=== PATIENT | female | born 1950 | race Caucasian/White ===

== ENCOUNTER → 2017-01-27 | Outpatient (CLI) | payer MEDICARE, OTHER ==
[~2017-01-27] VITALS: Ht 157.5 cm; Wt 66.7 kg
[2017-01-27 12:21] LABS: Basophils # (auto) 0 uL; Basophils % (auto) 0.5 % (0.0-2.0); CONDITION Y; Eosinophils # (auto) 0.2 uL; Hematocrit 44.6 % (36.0-46.0); Lymphocytes # (auto) 1.8 uL; Lymphocytes % (auto) 33.8 % (10.0-50.0); Mean Corpuscular Hemoglobin 31.3 pg (28.0-32.0); Mean Corpuscular Hgb Conc. 33.5 g/dL (32.0-36.0); Mean Corpuscular Volume 93.3 fL (80.0-100.0); Mean Platelet Volume 10.1 fL (7.4-10.4); Monocytes # (auto) 0.3 uL; Monocytes % (auto) 5.4 % (0.0-12.0); Neutrophils % (auto) 57.3 % (37.0-80.0); Platelet Count (auto) 241 10^3/uL (140-450); Red Cell Distribution Width 13.5 % (11.6-16.0); White Blood Cell 5.2 10^3/uL (4.4-10.8)
[2017-01-27 12:31] LABS: Urine Bilirubin Negative (Negative); Urine Blood Negative /uL (Negative); Urine Color Yellow (Yellow); Urine Glucose Normal (Normal); Urine Ketone Negative (Negative); Urine Nitrite Negative (Negative); Urine Urobilinogen Normal (Negative); Urine pH 5.5 (5.0-8.0)
[2017-01-27 13:03] LABS: Albumin 3.6 g/dL (3.4-5.0); Alkaline Phosphatase 57 U/L (45-117); Anion Gap 9 (5-15); Aspartate Aminotransferase 17 U/L (15-37); Bilirubin, Direct < 0.1 mg/dL (0-0.2); Bilirubin, Total 0.5 mg/dL (0.2-1.0); Blood Urea Nitrogen 18 mg/dL (7-18); Calcium 9.6 mg/dL (8.5-10.1); Carbon Dioxide 24 mmol/L (21-32); Chloride 107 mmol/L (98-107); Cholesterol 226 mg/dL (< 200); GFR African American 123 mL/min; GFR Non-African American 102 mL/min; Glucose 93 mg/dL (74-106); HDL Cholesterol 66 mg/dL (40-59); LDL Cholesterol 137 mg/dL (< 100); Sodium 140 mmol/L (136-145); Total Protein 7.2 g/dL (6.4-8.2); Triglycerides 151 mg/dL (< 150)
== END | disposition home or self-care (01) ==
LOC: Rad HDHVI 08:56
PROVIDERS: ATTEND Internal Medicine Cardiovascular Disease
DX: I10 Essential (primary) hypertension (principal); E11.9 Type 2 diabetes mellitus without complications; E03.9 Hypothyroidism, unspecified; E78.00 Pure hypercholesterolemia, unspecified; N39.0 Urinary tract infection, site not specified; K74.1 Hepatic sclerosis; D64.9 Anemia, unspecified; E55.9 Vitamin D deficiency, unspecified
CPT/HCPCS: 36415; 78452; 80048; 80061; 80076; 81003; 82306; 83036; 84439; 84443; 85025; 93017; 93306; 96374; A9500

== ENCOUNTER → 2018-05-26 | Outpatient (CLI) | payer MEDICARE, OTHER | END | disposition home or self-care (01) | LOC: Rad HDHVI 12:33 | PROVIDERS: ATTEND Internal Medicine Cardiovascular Disease | DX: I10 Essential (primary) hypertension (principal); E78.00 Pure hypercholesterolemia, unspecified; R07.89 Other chest pain; R06.02 Shortness of breath; R00.2 Palpitations | CPT/HCPCS: 93880 ==

== ENCOUNTER → 2018-06-23 | Outpatient (CLI) | payer MEDICARE, OTHER ==
[~2018-06-23] VITALS: Ht 157.5 cm; Wt 68.5 kg
== END | disposition home or self-care (01) ==
LOC: Rad HDHVI 09:47
PROVIDERS: ATTEND Internal Medicine Cardiovascular Disease
DX: I10 Essential (primary) hypertension (principal); R07.89 Other chest pain; R00.2 Palpitations
CPT/HCPCS: 78452; 93017; 96374; A9500

== ENCOUNTER → 2018-12-14 | Outpatient (CLI) | payer MEDICARE, OTHER ==
[2018-12-14 12:14] LABS: Basophils # (auto) 0 uL; Basophils % (auto) 0.5 % (0.0-2.0); Eosinophils # (auto) 0.1 uL; Eosinophils % (auto) 1.7 % (0.0-7.0); Hematocrit 43.3 % (36.0-46.0); Hemoglobin 14.6 g/dL (12.2-16.2); Lymphocytes # (auto) 1.2 uL; Lymphocytes % (auto) 30.7 % (10.0-50.0); Mean Corpuscular Hgb Conc. 33.7 g/dL (32.0-36.0); Monocytes # (auto) 0.3 uL; Monocytes % (auto) 8.1 % (0.0-12.0); Neutrophils # (auto) 2.3 uL; Platelet Count (auto) 208 10^3/uL (140-450); Red Blood Cells 4.56 10^6/uL (4.0-5.20); Red Cell Distribution Width 13.6 % (11.8-14.3); White Blood Cell 3.9 10^3/uL (4.4-10.8)
[2018-12-14 12:19] LABS: Urine Blood Negative /uL (Negative); Urine Specific Gravity 1.024 (1.001-1.035)
[2018-12-14 12:20] LABS: Potassium 4.7 mmol/L (3.5-5.1)
[2018-12-14 12:27] LABS: Free T4 (Free Thyroxine) 1.06 ng/dL (0.89-1.76)
[2018-12-14 12:32] LABS: Albumin 3.8 g/dL (3.4-5.0); BUN/Creatinine Ratio 28.8; Bilirubin, Total 0.4 mg/dL (0.2-1.0); Calcium 9.6 mg/dL (8.5-10.1); Total Protein 7.4 g/dL (6.4-8.2)
== END | disposition home or self-care (01) ==
LOC: LAB 08:41
PROVIDERS: ATTEND Internal Medicine Cardiovascular Disease
DX: E03.9 Hypothyroidism, unspecified (principal); E55.9 Vitamin D deficiency, unspecified; D51.9 Vitamin B12 deficiency anemia, unspecified; N39.0 Urinary tract infection, site not specified; Z79.899 Other long term (current) drug therapy
CPT/HCPCS: 36415; 80053; 80061; 81003; 82306; 82607; 83036; 84439; 84443; 85025; 87086

== ENCOUNTER → 2019-10-18 | Outpatient (CLI) | payer MEDICARE, OTHER ==
[~2019-10-18] VITALS: Ht 157.5 cm; Wt 65.8 kg
[2019-10-18 11:55] LABS: Basophils # (auto) 0 10 ^3/uL (0-0.2); Basophils % (auto) 0.6 % (0.0-2.0); Eosinophils # (auto) 0.1 10 ^3/uL (0-0.8); Eosinophils % (auto) 2.7 % (0.0-7.0); Hematocrit 43.8 % (36.0-46.0); Hemoglobin 14.8 g/dL (12.2-16.2); Lymphocytes # (auto) 1.4 10 ^3/uL (0.4-5.4); Lymphocytes % (auto) 34.7 % (10.0-50.0); Mean Corpuscular Hemoglobin 31.7 pg (28.0-32.0); Mean Corpuscular Hgb Conc. 33.8 g/dL (32.0-36.0); Mean Corpuscular Volume 93.9 fL (80.0-100.0); Monocytes # (auto) 0.3 10 ^3/uL (0-1.3); Monocytes % (auto) 7.6 % (0.0-12.0); Neutrophils # (auto) 2.2 10 ^3/uL (1.6-8.6); Neutrophils % (auto) 54.4 % (37.0-80.0); Nucleated Red Blood Cells % 0.1 %; Platelet Count (auto) 224 10^3/uL (140-450); Red Blood Cells 4.66 10^6/uL (4.0-5.20); Red Cell Distribution Width 13.3 % (11.8-14.3); White Blood Cell 4.1 10^3/uL (4.4-10.8)
[2019-10-18 11:57] LABS: Urine Blood Negative /uL (Negative); Urine Specific Gravity 1.013 (1.001-1.035)
[2019-10-18 12:08] LABS: Potassium 4.2 mmol/L (3.5-5.1)
[2019-10-18 12:15] LABS: Free T4 (Free Thyroxine) 1.12 ng/dL (0.89-1.76)
[2019-10-18 12:19] LABS: Albumin 3.5 g/dL (3.4-5.0); BUN/Creatinine Ratio 31.9; Bilirubin, Total 0.2 mg/dL (0.2-1.0); Total Protein 7.8 g/dL (6.4-8.2)
== END | disposition home or self-care (01) ==
LOC: Rad HDHVI 08:29
PROVIDERS: ATTEND Internal Medicine Cardiovascular Disease
DX: N39.0 Urinary tract infection, site not specified (principal); Z00.00 Encounter for general adult medical examination without abnormal findings; E03.9 Hypothyroidism, unspecified; K90.9 Intestinal malabsorption, unspecified; Z79.899 Other long term (current) drug therapy; D51.9 Vitamin B12 deficiency anemia, unspecified
CPT/HCPCS: 36415; 78452; 80053; 80061; 81003; 82306; 82607; 83036; 84439; 84443; 85025; 87086; 93017; 96374; A9500

== ENCOUNTER → 2019-10-25 | Outpatient (CLI) | payer MEDICARE, OTHER | END | disposition home or self-care (01) | LOC: Rad HDHVI 09:56 | PROVIDERS: ATTEND Internal Medicine Cardiovascular Disease | DX: R00.2 Palpitations (principal); I10 Essential (primary) hypertension; R07.89 Other chest pain | CPT/HCPCS: 93306 ==

== ENCOUNTER → 2020-03-23 | Outpatient (CLI) | payer MEDICARE, OTHER ==
[~2020-03-23] MED LIST: IOHEXOL 350 MG/ML 100ML IJ ONE
[2020-03-23 10:03] VITALS: BP 104/63
--- NOTE | 2020-03-23 10:03 | NUR ---
Patient into clinic for scheduled CT appt. AAOx4, ambulatory, breathing even and unlabored.
--- NOTE | 2020-03-23 10:25 | NUR ---
IV insertion IV access obtained, via clean sterile technique by inserting 22 gauge catheter at RFA after 1 attempt(s). IV secured properly. No trauma to site. Patient tolerated procedure well.
--- NOTE | 2020-03-23 11:00 | NUR ---
IV removal IV DC'd with sterile technique, catheter fully intact. Pressure dressing applied to site. Patient tolerated procedure well.
[2020-03-23 11:04] VITALS: BP 134/59
--- NOTE | 2020-03-23 11:04 | NUR ---
Discharge Instructions See e-MAR for any mediations given with this visit. Patient education given on disease process. Patient verbalized understanding. Previous labs reviewed. Patient discharged in stable condition with after care instructions and follow up appointment. Note Patient educated to drink plenty of fluids over the next 24hrs after IV contrast, patient verbalized understanding.
== END | disposition home or self-care (01) ==
LOC: Rad HDHVI 09:55
PROVIDERS: ATTEND Internal Medicine Cardiovascular Disease
DX: I67.82 Cerebral ischemia (principal); K57.30 Diverticulosis of large intestine without perforation or abscess without bleeding; N28.1 Cyst of kidney, acquired; I67.2 Cerebral atherosclerosis; I70.209 Unspecified atherosclerosis of native arteries of extremities, unspecified extremity; R51 Headache; R10.9 Unspecified abdominal pain; Z90.49 Acquired absence of other specified parts of digestive tract
CPT/HCPCS: 70450; 74177; G0463; Q9967

== ENCOUNTER → 2020-07-30 | Outpatient (CLI) | payer MEDICARE, OTHER | END | disposition home or self-care (01) | LOC: Rad HDHVI 10:03 | PROVIDERS: ATTEND Internal Medicine Cardiovascular Disease | DX: R06.02 Shortness of breath (principal) | CPT/HCPCS: 93306 ==

== ENCOUNTER → 2021-02-13 | Outpatient (CLI) | payer MEDICARE, OTHER ==
[~2021-02-13] VITALS: Ht 157.5 cm; Wt 65.8 kg
== END | disposition home or self-care (01) ==
LOC: Rad HDHVI 09:29
PROVIDERS: ATTEND Internal Medicine Cardiovascular Disease
DX: I10 Essential (primary) hypertension (principal); E78.00 Pure hypercholesterolemia, unspecified
CPT/HCPCS: 78452; 93017; 96374; A9500

== ENCOUNTER → 2021-11-06 | Outpatient (CLI) | payer OTHER, MEDICARE | END | disposition home or self-care (01) | LOC: Rad HDHVI 09:45 | PROVIDERS: ATTEND Internal Medicine Cardiovascular Disease | DX: R07.89 Other chest pain (principal); R42 Dizziness and giddiness | CPT/HCPCS: 93306 ==

== ENCOUNTER → 2022-01-28 | Outpatient (CLI) | payer OTHER ==
[~2022-01-28] MED LIST changes: +ASCO1CHW PO; +ASPI-543 PO; +CALC1TAB92 PO; +COEN100C30 PO; +CYAN500L3 PO; +EZET10TA22 PO; +FLUC200T50 PO; +GABA100C9 PO; +GINK120C3 PO; -IOHEXOL 350 MG/ML 100ML IJ ONE; +KRIL1CAP11 PO; +LOSA25TA38 PO; +MISCTAB PO; +MULT-551 PO; +NIAC100T5 PO; +TURM500C3 OR; +[UNRECOGNIZED DRUG - CODE] PO
[2022-01-28 08:23] VITALS: BP 119/63
[2022-01-28 08:40] VITALS: BP 119/55
[2022-01-28 09:55] LABS: Basophils # (auto) 0 10 ^3/uL (0-0.2); Basophils % (auto) 0.5 % (0.0-2.0); Eosinophils # (auto) 0.1 10 ^3/uL (0-0.8); Eosinophils % (auto) 2.7 % (0.0-7.0); Hematocrit 42.9 % (36.0-46.0); Lymphocytes # (auto) 1.1 10 ^3/uL (0.4-5.4); Lymphocytes % (auto) 26.1 % (10.0-50.0); Mean Corpuscular Hgb Conc. 32.7 g/dL (32.0-36.0); Mean Corpuscular Volume 94.8 fL (80.0-100.0); Monocytes # (auto) 0.3 10 ^3/uL (0-1.3); Monocytes % (auto) 7.3 % (0.0-12.0); Neutrophils # (auto) 2.7 10 ^3/uL (1.6-8.6); Neutrophils % (auto) 63.4 % (37.0-80.0); Nucleated Red Blood Cells % 0.1 %; Potassium 4.5 mmol/L (3.5-5.1); Red Blood Cells 4.53 10^6/uL (4.0-5.20); Red Cell Distribution Width 13.8 % (11.8-14.3); White Blood Cell 4.3 10^3/uL (4.4-10.8)
[2022-01-28 10:00] LABS: BUN/Creatinine Ratio 27.1
[2022-01-28 10:01] LABS: INR 0.97 (0.9-1.15); Partial Thromboplastin Time 27.8 sec (24.6-33.4)
== END | disposition home or self-care (01) ==
LOC: CHF HDHVI 08:09
PROVIDERS: ATTEND Internal Medicine Cardiovascular Disease
DX: Z01.812 Encounter for preprocedural laboratory examination (principal); R07.89 Other chest pain
CPT/HCPCS: 36415; 80048; 85025; 85610; 85730; 93005; G0463

== ENCOUNTER 2022-01-30 06:48 | Day surgery (SDC) | payer OTHER ==
[2022-01-30] VITALS (7 sets, daily range): BP systolic 114–145; BP diastolic 67–78
[~2022-01-30] VITALS: Ht 157.5 cm; Wt 63.0 kg
[2022-01-30] MEDS ORDERED: ANGIOMAX 250 MG VIAL IV ONE (09:21)
[2022-01-30] MEDS ORDERED: SODIUM CHL 0.9% 0 ML ONE (09:21)
[2022-01-30] MEDS ORDERED: fentaNYL CITRATE 100 MCG/2 ML VL ONE (09:21)
[2022-01-30] MEDS ORDERED: MIDAZOLAM HCL 2MG/2ML 2ml VIAL (1mg/ml) ONE (09:21)
[2022-01-30] MEDS ORDERED: LIDOCAINE 2%HCL (LOCAL ANESTH.) INJ 20ML MDV ONE (09:37)
[2022-01-30] MEDS ORDERED: IOHEXOL 350 MG/ML 100ML IJ ONE (09:37)
== END 2022-01-30 12:25 | disposition home or self-care (01) ==
LOC: CATH 06:48
PROVIDERS: ATTEND Internal Medicine Cardiovascular Disease
DX: R94.39 Abnormal result of other cardiovascular function study (principal); I11.0 Hypertensive heart disease with heart failure; I50.30 Unspecified diastolic (congestive) heart failure; E78.5 Hyperlipidemia, unspecified; Z87.891 Personal history of nicotine dependence; Z20.822 Contact with and (suspected) exposure to COVID-19
CPT/HCPCS: 93458; C1760; C1769; C1894; J1644; J2250; J3010; J7030; Q9967; U0003; 99152

== ENCOUNTER → 2022-07-23 | Outpatient (CLI) | payer OTHER | END | disposition home or self-care (01) | LOC: Rad HDHVI 12:51 | PROVIDERS: ATTEND Internal Medicine Cardiovascular Disease | DX: R06.02 Shortness of breath (principal); M47.814 Spondylosis without myelopathy or radiculopathy, thoracic region; Z90.49 Acquired absence of other specified parts of digestive tract | CPT/HCPCS: 71046 ==

== ENCOUNTER → 2023-06-10 | Outpatient (CLI) | payer OTHER ==
[~2023-06-10] MED LIST changes: -CYAN500L3 PO; +CYAN500L4 PO; +GABA-1308 PO; -GABA100C9 PO; +LOSA25TA15 PO; -LOSA25TA38 PO
== END | disposition home or self-care (01) ==
LOC: Rad HDHVI 10:06
PROVIDERS: ATTEND Internal Medicine Cardiovascular Disease
DX: R00.2 Palpitations (principal); R06.02 Shortness of breath
CPT/HCPCS: 93306

== ENCOUNTER → 2023-06-17 | Outpatient (CLI) | payer OTHER ==
[~2023-06-17] VITALS: Ht 157.5 cm; Wt 65.8 kg
== END | disposition home or self-care (01) ==
LOC: Rad HDHVI 10:21
PROVIDERS: ATTEND Internal Medicine Cardiovascular Disease
DX: R07.9 Chest pain, unspecified (principal); R06.02 Shortness of breath; R00.2 Palpitations; I10 Essential (primary) hypertension; E78.00 Pure hypercholesterolemia, unspecified
CPT/HCPCS: 78452; 93017; 96374; A9500

== ENCOUNTER → 2025-01-12 | Outpatient (CLI) | payer OTHER ==
[~2025-01-12] MED LIST changes: -COEN100C30 PO; +COEN100C33 PO; +LOSA-533 PO; -LOSA25TA15 PO
--- NOTE | 2025-01-16 14:39 | DVHSR ---
APPROVED REPORT EXAM: Two-dimensional and M-mode echocardiogram with Doppler and color Doppler. DIMENSIONS LVDd4.0 (3.8-5.7cm)LA (2D)3.9 (1.9-4.0cm)Aortic Root3.4 (2.0-3.7cm) LVDs2.8 (2.5-4.0cm)LA (MM) (1.9-4.0cm)Aortic Cusp Exc1.8 (1.5-2.0cm) EF (%) 58.3 (55-70%)Rt. Atrium3.5 (1.9-4.0cm)Asc. Aorta2.9 cm IVSd1.0 (0.7-1.1cm)RV (D)3.0 (1.8-2.4cm) PWd1.0 (0.7-1.1cm) Mitral Valve MitralMitral Stenosis E wave0.55m/sMV Mean GR.mmHg A wave1.08m/sMV Peak GR.18mmHg E/A ratio0.52D MVAcm2 DECEL [id number] 1/2 [place] Aortic Valve Aortic ValveAortic Stenosis V10.71m/Mihir Mean GR.3mmHg V21.16m/Mihir Peak GR.5mmHg Pulmonic Valve V20.62m/s Tricuspid Valve [id number] LEFT VENTRICLE The Ejection Fraction is >55%. ATRIA The left atrial size is normal. The right atrium size is normal. MITRAL VALVE The mitral valve is normal in structure and function. Mitral regurgitation is trace to mild. PULMONIC VALVE The pulmonic valve is not well visualized. TRICUSPID VALVE The tricuspid valve is grossly normal. There is trace tricuspid regurgitation. AORTIC VALVE The aortic valve opens well. No aortic regurgitation is present. GREAT VESSELS The aortic root is normal size. PERICARDIAL EFFUSION There is no pericardial effusion. Conclusion EF 55% MILD MR
== END | disposition home or self-care (01) ==
LOC: Rad HDHVI 07:52
PROVIDERS: ATTEND Internal Medicine Cardiovascular Disease
DX: I34.0 Nonrheumatic mitral (valve) insufficiency (principal); I10 Essential (primary) hypertension
CPT/HCPCS: 93306

== ENCOUNTER → 2025-02-01 | Outpatient (CLI) | payer OTHER | END | disposition home or self-care (01) | LOC: Rad HDHVI 12:54 | PROVIDERS: ATTEND Internal Medicine Cardiovascular Disease | DX: I65.23 Occlusion and stenosis of bilateral carotid arteries (principal); I10 Essential (primary) hypertension | CPT/HCPCS: 93880 ==